=== PATIENT | female | born 1995 | race Caucasian/White ===

== ENCOUNTER 2016-12-05 08:26 | Inpatient (IN) | payer BC ==
[2016-12-05] MEDS ORDERED: PITOCin/NS 20 UNIT/1000ML DRIP 20 UNIT/1,000 ML BAG IV SCH (09:00)
[2016-12-05] MEDS ORDERED: STADOL IV PRN (09:30)
[2016-12-05] MEDS ORDERED: SUBLIMAZE IV PRN (09:30)
[2016-12-05] MEDS ORDERED: BRETHINE IVP PRN (10:00)
[2016-12-05] MEDS ORDERED: ZOFRAN IV PRN (10:00)
[2016-12-05] MEDS ORDERED: ePHEDrine SULFATE IV PRN (10:00)
[2016-12-05] MEDS ORDERED: NARCAN 0.4 MG/1 ML IV PRN (10:00)
[2016-12-05] MEDS ORDERED: BRETHINE SUB-Q PRN (10:00)
[2016-12-05] MEDS ORDERED: ALDOMET PO SCH (10:00)
[2016-12-05] MEDS ORDERED: XYLOCAINE 2% INFILTRATI ONE (10:00)
[2016-12-05] MEDS: CYTOTEC VAGINAL SCH ×2 (10:55→14:45)
[2016-12-05] MEDS: LACTATED RINGERS 1,000 ML IV SCH (11:05)
[2016-12-05 11:42] LABS: Hematocrit 37.7 % (30.3-42.9); Hemoglobin 12.2 gm/dl (10.1-14.3); Mean Corpuscular HGB Conc 32 % (30-34); Mean Corpuscular Volume 80 fl (79-97); Platelet Count 299 K/mm3 (140-440); Red Blood Count 4.73 M/mm3 (3.65-5.03); Red Cell Distribution Width 14.9 % (13.2-15.2); White Blood Count 13.4 K/mm3 (4.5-11.0)
[2016-12-05 11:46] LABS: Mean Corpuscular Hemoglobin 26 pg (28-32)
--- NOTE | 2016-12-05 12:17 | History and Physical Report ---
History of Present Illness Date of examination: 12/05/16 Date of admission: 12/05/16 08:26 Chief complaint: pt presents for inducion of labor secondary to chronic HTN at 39 weeks gestation Past History Past Medical History: no pertinent history Past Surgical History: no surgical history Family/Genetic History: diabetes Social history: no significant social history - Obstetrical History Expected Date of Delivery: 12/11/16 Actual Gestation: 39 Week(s) 1 Day(s) : 1 Medications and Allergies Allergies Allergy/AdvReac Type Severity Reaction Status Date / Time No Known Allergies Allergy Verified 12/05/16 09:30 Home Medications Medication Instructions Recorded Confirmed Last Taken Type Cyclobenzaprine [Flexeril] 10 mg PO TID PRN #15 tablet 02/14/14 Unknown Rx Ibuprofen [Motrin] 600 mg PO Q8H PRN #15 tablet 02/14/14 Unknown Rx Active Meds: Active Medications Butorphanol Tartrate (Stadol) 2 mg IV Q2H PRN PRN Reason: Pain , Severe (7-10) Ephedrine Sulfate (Ephedrine Sulfate) 10 mg IV Q2M PRN PRN Reason: Hypotension Stop: 12/05/16 16:00 Fentanyl (Sublimaze) 100 mcg IV Q2H PRN PRN Reason: Labor Pain Lactated Ringer's (Lactated Ringers) 1,000 mls @ 125 mls/hr IV DIRECT [facility] Last Admin: 12/05/16 11:05 Dose: 125 mls/hr Oxytocin/Sodium Chloride (Pitocin/Ns 20 Unit/1000ml Drip) 20 unit in 1,000 mls @ 125 mls/hr IV DIRECT [facility] Methyldopa (Aldomet) 250 mg PO Q12HR [facility] Mineral Oil (Mineral Oil) 30 ml PO QHS PRN PRN Reason: Constipation Misoprostol (Cytotec) 25 mcg VAGINAL Q4H [facility] Last Admin: 12/05/16 10:55 Dose: 25 mcg Naloxone HCl (Narcan 0.4 Mg/1 Ml) 0.1 mg IV Q2MIN PRN PRN Reason: Res Rate </= 8 or 02 SAT < 92% Ondansetron HCl (Zofran) 4 mg IV Q8H PRN PRN Reason: Nausea And Vomiting Review of Systems All systems: negative - Vital Signs Vital signs: Vital Signs Pulse BP 122 H 126/83 12/05/16 09:17 12/05/16 09:17 Temp Pulse Resp BP Pulse Ox 98.8 F 122 H 18 126/83 12/05/16 09:35 12/05/16 09:17 12/05/16 09:35 12/05/16 09:17 - Physical Exam Breasts: Positive: deferred Cardiovascular: Regular rate, Normal S1, Normal S2 Abdomen: Positive: normal appearance, soft, normal bowel sounds. Negative: distention, tenderness Vulva: both: normal Vagina: Positive: normal moisture. Negative: discharge Cervix: Negative: lesion, discharge Uterus: Positive: normal size, normal contour Adnexa: both: normal Anus/Rectum: Positive: normal perianal skin, heme negative. Negative: rectal mass, hemorrhoids Extremities: Deep Tendon Reflex Grade: Normal +2 - Obstetrical FHR: category 1 Uterine Contraction Monitor Mode: External Cervical Dilatation: 1.5 Cervical Effacement Percentage: 70 station: -1 Uterine Contraction Pattern: Absent Uterine Tone Measurement Phase: Resting Results Result Diagrams: 12/05/16 09:35 Abnormal lab results 12/05/16 Range/Units 09:35 WBC 13.4 H (4.5-11.0) K/mm3 MCH 26 L (28-32) pg All other labs normal. Assessment and Plan Iup atterm, chronic HTN Plan admit for induction of labor
--- NOTE | 2016-12-05 14:56 | Event Note ---
Date: 12/05/16 second cytotec just being placed. if no evidence of labor in 4 hours will allow patient to eat dinner and resume induction at 12 midnight
--- NOTE | 2016-12-05 18:19 | Event Note ---
Date: 12/05/16 pt examined and noted to be 70/2.5 -2 station. pt to have dinner and will start pitocin at 2am
[2016-12-05] MEDS ORDERED: MINERAL OIL PO PRN (22:00)
[2016-12-05] MEDS ORDERED: AMBIEN PO PRN (22:35)
[2016-12-05] MEDS: ALDOMET PO SCH (23:03)
[2016-12-06] MEDS: LACTATED RINGERS 1,000 ML IV SCH ×4 (02:50→19:59)
[2016-12-06] MEDS: PITOCin/NS 30 UNIT/500ML 30 UNIT/500 ML BAG IV SCH ×3 (02:51→20:38)
--- NOTE | 2016-12-06 08:57 | Event Note ---
Date: 12/06/16 pt examined and noted to be 70/2.5cm. arom- clear. iupc placed.. will Titrate pitocin to obtain adequate labor pattern.
[2016-12-06] MEDS: ALDOMET PO SCH (10:00)
[2016-12-06] MEDS ORDERED: ePHEDrine SULFATE ONE (12:17)
--- NOTE | 2016-12-06 12:49 | Anesthesia Consultation ---
Anesthesia Consult and Med Hx Date of service: 12/06/16 - Airway Anesthetic Teeth Evaluation: Good ROM Head & Neck: Adequate Mental/Hyoid Distance: Adequate Mallampati Class: Class II Intubation Access Assessment: Probably Good - Pulmonary Exam CTA: Yes - Cardiac Exam Cardiac Exam: No Murmur - Pre-Operative Health Status ASA Pre-Surgery Classification: ASA2 Proposed Anesthetic Plan: Epidural - Pulmonary Hx Asthma: No COPD: No Hx Pneumonia: No - Cardiovascular System Hx Hypertension: Yes (Gestational HTN) - Central Nervous System Hx Seizures: No Hx Psychiatric Problems: No - Endocrine Hx Renal Disease: No Hx End Stage Renal Disease: No Hx Hypothyroidism: No Hx Hyperthyroidism: No - Hematic Hx Anemia: No Hx Sickle Cell Disease: No - Other Systems Hx Alcohol Use: No
[2016-12-06] MEDS ORDERED: ePHEDrine SULFATE IV PRN (12:50)
[2016-12-06] MEDS ORDERED: NARCAN 2 MG/2 ML IV PRN (12:50)
[2016-12-06] MEDS: fentaNYL-BUPIV 2 MCG/ML-0.125% 200 MCG/100 ML BAG EPIDURAL SCH ×2 (13:06→20:38)
--- NOTE | 2016-12-06 19:27 | Progress Note ---
Assessment and Plan iup at term, chronic htn on pitocin Plan- patient has made slow progress. currently low grade temp. will attempt change in positions. If arrest of dilation or signs of chorio will proceed with c/s Subjective - Subjective Date of service: 12/06/16 Principal diagnosis: iup at 39 weeks Patient reports: contractions Objective - Vital Signs Vital Signs: Vital Signs - 12hr 12/06/16 12/06/16 12/06/16 07:26 07:30 07:31 Temperature Pulse Rate 92 H 93 H 95 H Blood Pressure O2 Sat by Pulse 94 94 95 Oximetry 12/06/16 12/06/16 12/06/16 07:34 07:36 07:37 Temperature Pulse Rate 100 H 106 H 103 H Blood Pressure 102/53 O2 Sat by Pulse 94 94 Oximetry 12/06/16 12/06/16 12/06/16 07:41 07:44 07:46 Temperature Pulse Rate 102 H 92 H 96 H Blood Pressure 96/51 O2 Sat by Pulse 95 94 94 Oximetry 12/06/16 12/06/16 12/06/16 07:50 07:51 07:55 Temperature Pulse Rate 102 H 104 H 101 H Blood Pressure O2 Sat by Pulse 94 94 94 Oximetry 12/06/16 12/06/16 12/06/16 07:56 08:05 08:10 Temperature Pulse Rate 103 H 99 H 97 H Blood Pressure O2 Sat by Pulse 94 96 95 Oximetry 12/06/16 12/06/16 12/06/16 08:15 08:17 08:20 Temperature Pulse Rate 97 H 97 H 101 H Blood Pressure 116/54 O2 Sat by Pulse 96 96 Oximetry 12/06/16 12/06/16 12/06/16 08:25 08:30 08:35 Temperature Pulse Rate 100 H 102 H 105 H Blood Pressure O2 Sat by Pulse 95 96 97 Oximetry 12/06/16 12/06/16 12/06/16 08:39 08:40 08:45 Temperature Pulse Rate 111 H 116 H 110 H Blood Pressure O2 Sat by Pulse 94 98 97 Oximetry 12/06/16 12/06/16 12/06/16 08:46 08:50 08:55 Temperature Pulse Rate 113 H 114 H 89 Blood Pressure 113/65 O2 Sat by Pulse 95 94 Oximetry 12/06/16 12/06/16 12/06/16 09:00 09:02 09:05 Temperature Pulse Rate 100 H 106 H 109 H Blood Pressure O2 Sat by Pulse 94 94 95 Oximetry 12/06/16 12/06/16 12/06/16 09:09 09:10 09:15 Temperature Pulse Rate 102 H 107 H 99 H Blood Pressure O2 Sat by Pulse 94 95 96 Oximetry 12/06/16 12/06/16 12/06/16 09:16 09:20 09:22 Temperature Pulse Rate 100 H 98 H 106 H Blood Pressure 119/58 O2 Sat by Pulse 96 94 Oximetry 12/06/16 12/06/16 12/06/16 09:25 09:30 09:33 Temperature Pulse Rate 102 H 104 H 111 H Blood Pressure O2 Sat by Pulse 95 95 94 Oximetry 12/06/16 12/06/16 12/06/16 09:35 09:40 09:45 Temperature Pulse Rate 102 H 106 H 103 H Blood Pressure O2 Sat by Pulse 96 96 95 Oximetry 12/06/16 12/06/16 12/06/16 09:46 09:50 09:55 Temperature Pulse Rate 107 H 100 H 105 H Blood Pressure 101/57 O2 Sat by Pulse 95 96 Oximetry 12/06/16 12/06/16 12/06/16 10:00 10:03 10:05 Temperature Pulse Rate 106 H 104 H 109 H Blood Pressure 107/57 O2 Sat by Pulse 97 93 94 Oximetry 12/06/16 12/06/16 12/06/16 10:11 10:12 10:16 Temperature Pulse Rate 97 H 101 H 94 H Blood Pressure 111/64 O2 Sat by Pulse 92 93 Oximetry 12/06/16 12/06/16 12/06/16 10:17 10:22 10:23 Temperature Pulse Rate 92 H 91 H 95 H Blood Pressure O2 Sat by Pulse 94 94 94 Oximetry 12/06/16 12/06/16 12/06/16 10:27 10:32 10:37 Temperature Pulse Rate 96 H 92 H 97 H Blood Pressure O2 Sat by Pulse 94 94 94 Oximetry 12/06/16 12/06/16 12/06/16 10:42 10:46 10:47 Temperature Pulse Rate 93 H 100 H 89 Blood Pressure 104/65 O2 Sat by Pulse 94 94 Oximetry 12/06/16 12/06/16 12/06/16 10:52 10:57 11:02 Temperature Pulse Rate 93 H 95 H 95 H Blood Pressure O2 Sat by Pulse 93 94 94 Oximetry 12/06/16 12/06/16 12/06/16 11:07 11:12 11:16 Temperature Pulse Rate 95 H 96 H 95 H Blood Pressure 114/70 O2 Sat by Pulse 94 93 Oximetry 12/06/16 12/06/16 12/06/16 11:17 11:22 11:24 Temperature Pulse Rate 97 H 100 H 101 H Blood Pressure O2 Sat by Pulse 94 94 94 Oximetry 12/06/16 12/06/16 12/06/16 11:26 11:29 11:32 Temperature Pulse Rate 102 H 111 H 102 H Blood Pressure O2 Sat by Pulse 94 94 95 Oximetry 12/06/16 12/06/16 12/06/16 11:36 11:37 11:42 Temperature Pulse Rate 109 H 110 H 99 H Blood Pressure O2 Sat by Pulse 94 95 93 Oximetry 12/06/16 12/06/16 12/06/16 11:47 11:48 11:52 Temperature Pulse Rate 106 H 103 H 104 H Blood Pressure 122/83 O2 Sat by Pulse 95 94 94 Oximetry 12/06/16 12/06/16 12/06/16 11:53 11:57 11:59 Temperature Pulse Rate 98 H 95 H 101 H Blood Pressure O2 Sat by Pulse 94 93 94 Oximetry 12/06/16 12/06/16 12/06/16 12:02 12:05 12:07 Temperature Pulse Rate 107 H 99 H 94 H Blood Pressure O2 Sat by Pulse 95 94 94 Oximetry 12/06/16 12/06/16 12/06/16 12:10 12:12 12:17 Temperature Pulse Rate 97 H 98 H 103 H Blood Pressure 108/60 O2 Sat by Pulse 94 96 94 Oximetry 12/06/16 12/06/16 12/06/16 12:21 12:24 12:27 Temperature Pulse Rate 103 H 101 H 98 H Blood Pressure O2 Sat by Pulse 94 90 96 Oximetry 12/06/16 12/06/16 12/06/16 12:30 12:32 12:37 Temperature Pulse Rate 98 H 110 H 119 H Blood Pressure O2 Sat by Pulse 94 95 97 Oximetry 12/06/16 12/06/16 12/06/16 12:42 12:43 12:45 Temperature Pulse Rate 100 H 110 H 115 H Blood Pressure 120/71 O2 Sat by Pulse 96 94 Oximetry 12/06/16 12/06/16 12/06/16 12:47 12:52 12:57 Temperature Pulse Rate 102 H 115 H 131 H Blood Pressure O2 Sat by Pulse 95 95 97 Oximetry 12/06/16 12/06/16 12/06/16 12:58 13:02 13:03 Temperature Pulse Rate 121 H 116 H 121 H Blood Pressure 129/66 111/59 O2 Sat by Pulse 97 Oximetry 12/06/16 12/06/16 12/06/16 13:06 13:07 13:11 Temperature Pulse Rate 116 H 117 H 116 H Blood Pressure 111/56 120/66 O2 Sat by Pulse 97 Oximetry 12/06/16 12/06/16 12/06/16 13:12 13:17 13:18 Temperature Pulse Rate 123 H 107 H 114 H Blood Pressure 98/55 O2 Sat by Pulse 99 98 Oximetry 12/06/16 12/06/16 12/06/16 13:22 13:26 13:27 Temperature Pulse Rate 110 H 101 H 104 H Blood Pressure 100/60 101/60 O2 Sat by Pulse 97 98 Oximetry 12/06/16 12/06/16 12/06/16 13:31 13:32 13:37 Temperature Pulse Rate 99 H 103 H 112 H Blood Pressure 103/60 111/69 O2 Sat by Pulse 97 99 Oximetry 12/06/16 12/06/16 12/06/16 13:41 13:42 13:47 Temperature Pulse Rate 113 H 103 H 101 H Blood Pressure 102/63 102/56 O2 Sat by Pulse 99 98 Oximetry 12/06/16 12/06/16 12/06/16 13:52 13:57 14:02 Temperature Pulse Rate 109 H 110 H 97 H Blood Pressure 110/61 102/64 O2 Sat by Pulse 98 97 97 Oximetry 12/06/16 12/06/16 12/06/16 14:03 14:07 14:08 Temperature Pulse Rate 107 H 99 H 100 H Blood Pressure 113/59 103/59 O2 Sat by Pulse 98 Oximetry 12/06/16 12/06/16 12/06/16 14:12 14:16 14:17 Temperature Pulse Rate 103 H 95 H 101 H Blood Pressure 105/57 92/55 O2 Sat by Pulse 98 98 Oximetry 12/06/16 12/06/16 12/06/16 14:21 14:22 14:26 Temperature Pulse Rate 101 H 101 H 99 H Blood Pressure 93/54 98/59 O2 Sat by Pulse 96 Oximetry 12/06/16 12/06/16 12/06/16 14:27 14:31 14:32 Temperature Pulse Rate 107 H 97 H 100 H Blood Pressure 98/59 O2 Sat by Pulse 98 98 Oximetry 12/06/16 12/06/16 12/06/16 14:37 14:38 14:41 Temperature Pulse Rate 87 97 H 95 H Blood Pressure 98/56 94/56 O2 Sat by Pulse 98 Oximetry 12/06/16 12/06/16 12/06/16 14:42 14:47 14:48 Temperature Pulse Rate 94 H 89 97 H Blood Pressure 94/53 O2 Sat by Pulse 97 97 Oximetry 12/06/16 12/06/16 12/06/16 14:51 14:52 14:56 Temperature Pulse Rate 90 92 H 96 H Blood Pressure 90/53 93/53 O2 Sat by Pulse 98 Oximetry 12/06/16 12/06/16 12/06/16 14:57 15:01 15:02 Temperature Pulse Rate 94 H 88 85 Blood Pressure 97/58 O2 Sat by Pulse 97 99 Oximetry 12/06/16 12/06/16 12/06/16 15:07 15:08 15:12 Temperature Pulse Rate 112 H 111 H 115 H Blood Pressure 114/58 97/55 O2 Sat by Pulse 99 99 Oximetry 12/06/16 12/06/16 12/06/16 15:17 15:22 15:27 Temperature Pulse Rate 115 H 113 H 113 H Blood Pressure 108/58 110/61 103/64 O2 Sat by Pulse 98 98 97 Oximetry 12/06/16 12/06/16 12/06/16 15:32 15:37 15:42 Temperature Pulse Rate 112 H 114 H 117 H Blood Pressure 109/63 108/63 108/66 O2 Sat by Pulse 98 98 97 Oximetry 12/06/16 12/06/16 12/06/16 15:47 15:52 15:56 Temperature Pulse Rate 112 H 115 H 113 H Blood Pressure 100/63 102/56 96/56 O2 Sat by Pulse 96 96 Oximetry 12/06/16 12/06/16 12/06/16 15:57 16:01 16:02 Temperature Pulse Rate 115 H 107 H 111 H Blood Pressure 98/55 O2 Sat by Pulse 96 96 Oximetry 12/06/16 12/06/16 12/06/16 16:07 16:11 16:12 Temperature Pulse Rate 107 H 108 H 107 H Blood Pressure 103/55 102/58 O2 Sat by Pulse 96 96 Oximetry 12/06/16 12/06/16 12/06/16 16:17 16:22 16:23 Temperature Pulse Rate 111 H 102 H 106 H Blood Pressure 93/58 104/59 O2 Sat by Pulse 96 96 Oximetry 12/06/16 12/06/16 12/06/16 16:27 16:28 16:32 Temperature Pulse Rate 105 H 110 H 102 H Blood Pressure 100/54 O2 Sat by Pulse 96 96 Oximetry 12/06/16 12/06/16 12/06/16 16:33 16:37 16:42 Temperature Pulse Rate 111 H 109 H 108 H Blood Pressure 101/59 102/54 104/59 O2 Sat by Pulse 96 97 Oximetry 12/06/16 12/06/16 12/06/16 16:46 16:47 16:52 Temperature Pulse Rate 111 H 111 H 109 H Blood Pressure 104/59 104/60 O2 Sat by Pulse 97 96 Oximetry 12/06/16 12/06/16 12/06/16 16:56 16:57 17:01 Temperature Pulse Rate 108 H 112 H 116 H Blood Pressure 105/59 107/57 O2 Sat by Pulse 96 Oximetry 12/06/16 12/06/16 12/06/16 17:02 17:06 17:07 Temperature Pulse Rate 112 H 113 H 114 H Blood Pressure 103/58 O2 Sat by Pulse 97 96 Oximetry 12/06/16 12/06/16 12/06/16 17:12 17:13 17:17 Temperature Pulse Rate 115 H 118 H 110 H Blood Pressure 105/60 104/62 O2 Sat by Pulse 95 96 Oximetry 12/06/16 12/06/16 12/06/16 17:22 17:27 17:32 Temperature Pulse Rate 113 H 113 H 118 H Blood Pressure 99/57 102/55 112/65 O2 Sat by Pulse 95 96 97 Oximetry 12/06/16 12/06/16 12/06/16 17:36 17:37 17:41 Temperature Pulse Rate 129 H 130 H 117 H Blood Pressure 113/65 108/58 O2 Sat by Pulse 97 Oximetry 12/06/16 12/06/16 12/06/16 17:42 17:46 17:47 Temperature Pulse Rate 119 H 120 H 114 H Blood Pressure 107/60 O2 Sat by Pulse 97 97 Oximetry 12/06/16 12/06/16 12/06/16 17:51 17:52 17:56 Temperature Pulse Rate 117 H 120 H 122 H Blood Pressure 109/61 113/67 O2 Sat by Pulse 97 Oximetry 12/06/16 12/06/16 12/06/16 17:57 18:01 18:02 Temperature Pulse Rate 122 H 116 H 118 H Blood Pressure 111/69 O2 Sat by Pulse 97 97 Oximetry 12/06/16 12/06/16 12/06/16 18:07 18:11 18:12 Temperature Pulse Rate 114 H 120 H 123 H Blood Pressure 109/69 108/69 O2 Sat by Pulse 96 96 Oximetry 12/06/16 12/06/16 12/06/16 18:16 18:17 18:21 Temperature Pulse Rate 115 H 116 H 114 H Blood Pressure 108/69 105/68 O2 Sat by Pulse 96 Oximetry 12/06/16 12/06/16 12/06/16 18:22 18:27 18:32 Temperature Pulse Rate 114 H 117 H 118 H Blood Pressure 109/65 103/64 O2 Sat by Pulse 97 97 96 Oximetry 12/06/16 12/06/16 12/06/16 18:37 18:42 18:47 Temperature Pulse Rate 122 H 118 H 127 H Blood Pressure 113/72 107/63 O2 Sat by Pulse 98 97 98 Oximetry 12/06/16 12/06/16 12/06/16 18:52 18:53 18:57 Temperature Pulse Rate 118 H 125 H 123 H Blood Pressure 130/69 O2 Sat by Pulse 97 97 Oximetry 12/06/16 12/06/16 12/06/16 18:58 19:02 19:04 Temperature 100.1 F H Pulse Rate 117 H 127 H Blood Pressure 119/71 123/82 O2 Sat by Pulse 99 Oximetry 12/06/16 12/06/16 12/06/16 19:06 19:07 19:12 Temperature Pulse Rate 122 H 127 H 124 H Blood Pressure 129/86 O2 Sat by Pulse 99 98 Oximetry 12/06/16 12/06/16 19:17 19:22 Temperature Pulse Rate 122 H 127 H Blood Pressure O2 Sat by Pulse 98 98 Oximetry - Exam Breasts: deferred Cardiovascular: Regular rate, Normal S1, Normal S2 Lungs: Clear to auscultation Abdomen: Present: normal appearance, soft. Absent: distention, tenderness Vulva: both: normal Uterus: Present: normal FHR: category 1 Uterine Contraction Monitor Mode: Internal Cervical Dilatation: 5.5 Cervical Effacement Percentage: 100 station: -1 Uterine Contraction Pattern: Regular Uterine Contraction Intensity: Moderate Extremities: normal - Labs Labs: Abnormal Labs 12/05/16 09:35 WBC 13.4 H MCH 26 L
[2016-12-06] MEDS ORDERED: TYLENOL PO ONE (20:05)
[2016-12-06] MEDS ORDERED: REGLAN ONE (21:04)
[2016-12-06] MEDS ORDERED: BICITRA ONE (21:04)
[2016-12-06] MEDS ORDERED: ANCEF/STERILE WATER 2 GM/20 ML 2 GM/20 ML SYRINGE IV ONE (21:05)
[2016-12-06] MEDS ORDERED: PEPCID IV ONE ×2 (21:05→21:07)
[2016-12-06] MEDS ORDERED: BICITRA PO ONE (21:07)
[2016-12-06] MEDS ORDERED: EMLA TP PRN (21:07)
[2016-12-06] MEDS ORDERED: REGLAN IV ONE (21:07)
--- NOTE | 2016-12-06 21:19 | Anesthesia Day of Surgery ---
Anesthesia Day of Surgery - Day of Surgery Patient Examined: Yes Patient H&P Reviewed: Yes Patient is NPO: Yes
[2016-12-06] MEDS ORDERED: XYLOCAINE MPF 2% ONE (21:29)
[2016-12-06] MEDS ORDERED: MORPHINE ONE ×2 (21:29→21:30)
[2016-12-06] MEDS ORDERED: WATER FOR IRRIG STERILE IR ONE (21:42)
[2016-12-06] MEDS ORDERED: NACL 0.9% IR ONE (21:42)
[2016-12-06] MEDS ORDERED: ZOFRAN ONE (21:43)
[2016-12-06] MEDS ORDERED: METHERGINE IM ONE ×2 (21:55→22:02)
[2016-12-06] MEDS ORDERED: ANCEF/STERILE WATER 2 GM/20 ML IV NR (22:00)
[2016-12-06] MEDS ORDERED: PITOCin/NS 20 UNIT/1000ML DRIP 20 UNITS/1,000 ML BAG IV NR (22:00)
[2016-12-06] MEDS ORDERED: LACTATED RINGERS 1,000 ML IV NR (22:00)
[2016-12-06] MEDS ORDERED: PITOCin/NS 30 UNIT/500ML 30 UNIT/500 ML BAG IV SCH (22:00)
[2016-12-06] MEDS ORDERED: TORADOL ONE (22:10)
[2016-12-06] MEDS ORDERED: TYLENOL PO PRN (22:30)
--- NOTE | 2016-12-06 22:33 | Procedure Note ---
OB Delivery Note - Delivery Date of Delivery: 12/06/16 Surgeon: YOLA ALVARENGA Estimated blood loss: other (700ml) - Section Preop diagnosis: nonreassuring FHR tracing, other (chorioamnionitis) Postop diagnosis: same section procedure: primary low transverse Disposition: PACU Complications: none - Infant A at 1 minute: 8 at 5 minutes: 9 Gender: Male (wt 8-6 and mother tolerated the procedure well.)
--- NOTE | 2016-12-06 22:34 | Operative Report ---
Operative Report Operative Report: Preoperative diagnoses- Intrauterine at 39 WEEKS, NON REASSURING TRACING, CHORIOamnionitis Postoperative diagnoses- SAME Procedure- Repeat low segment transverse section Surgeon- Dr. Mirlande Rizo Anesthesia- Spinal/epidural Findings- live male infant wt 8-6, apgars 8 & 9, normal tubes and ovaries. Estimated blood loss- 700ml Complications- none Instrument count- Correct Pathology specimens- Placenta to pathology Patient was taken to the OR. Spinal/epidural anesthesia was instituted. Patient was then placed in the dorsolithotomy position and Alexis catheter was placed. Patient was then returned to the supine position and prepped and draped in usual sterile fashion. Level of anesthesia was checked and found to be adequate. Pfannenstiel skin incision was made. The incision was extended through the subcutaneous tissues to the fascia. Which was incised transversely using Mayos and pickups with teeth. The fascia was from the underlying muscle using Kochers and Bovie cautery. The rectus muscle was then in the midline. The peritoneum was visualized, grasped with hemostats and opened using the Metzenbaum scissors. Upon entering the peritoneal cavity an abran retractor was placed appropriately. A curvilinear incision was made with Metzenbaum scissors and a smooth pickup. A bladder flap was developed, a curvilinear incision was made in the lower uterine segment using a scalpel. The uterine cavity was entered bluntly with the surgeon's finger and the incision was enlarged. The Head of the infant was delivered . The mouth and nose were suctioned and the remainder of the body was delivered . The cord was doubly clamped and cut . Infant was given to the waiting team. The cord blood was obtained. The placenta was then delivered manually. The uterus is cleaned with a moist wet lap tape. The first layer of the uterus is closed with 0 Vicryl running interlocking stitch. The second layer of the uterus was closed with a 0 Vicryl horizontal imbricating stitch. The pelvic gutters were cleaned . Next the adnexa were examined and found to be normal. Next the fascia was closed with 0 Vicryl running suture. Next the subcutaneous tissue was reapproximated with 3-0 Vicryl running suture. The skin was reapproximated with a 4-0 Vicryl subcuticular stitch. Mastisol and Steri-Strips were placed . A pressure dressing was applied. The patient was transferred to recovery room in stable condition.
--- NOTE | 2016-12-06 22:39 | Post Anesthesia Evaluation ---
- Post Anesthesia Evaluation Patient Participated: Yes Airway Patent: Yes Stable Respiratory Function: Yes Nausea/Vomiting: No Temp > 96.8F: Yes Pain Manageable: Yes Adequeate Hydration: Yes Anesthesia Complications: No Block Receding Appropriately: Yes Patient on Ventilator: No
[2016-12-07] MEDS ORDERED: TUCKS PAD TP PRN (00:10)
[2016-12-07] MEDS ORDERED: PITOCin/NS 20 UNIT/1000ML DRIP 20 UNIT/1,000 ML BAG IV SCH (00:10)
[2016-12-07] MEDS ORDERED: MORPHINE IV PRN (00:10)
[2016-12-07] MEDS ORDERED: LANSINOH TP PRN (00:10)
[2016-12-07] MEDS ORDERED: NARCAN 0.4 MG/1 ML IV PRN (00:10)
[2016-12-07] MEDS ORDERED: MYLICON PO PRN (00:10)
[2016-12-07] MEDS ORDERED: SODIUM CHLORIDE FLUSH SYRINGE 10 ML IV NR (00:10)
[2016-12-07] MEDS ORDERED: MILK OF MAGNESIA PO PRN (00:10)
[2016-12-07] MEDS ORDERED: TORADOL IV PRN (00:10)
[2016-12-07] MEDS: CLEOCIN 600 MG/50 mL 600 MG/50 ML BAG IV SCH ×4 (00:42→23:55)
[2016-12-07] MEDS: D5LR 1,000 ML IV SCH ×2 (02:03→10:52)
[2016-12-07] MEDS: ANCEF/NS 1 GM/50 ML 1 GM/50 ML BAG IV SCH ×2 (02:07→10:50)
[2016-12-07] MEDS ORDERED: CLEOCIN 600 MG/50 mL 600 MG/50 ML BAG IV SCH (06:00)
[2016-12-07 06:06] LABS: Hematocrit 31.3 % (30.3-42.9); Hemoglobin 10.2 gm/dl (10.1-14.3); Mean Corpuscular HGB Conc 33 % (30-34); Mean Corpuscular Volume 79 fl (79-97); Platelet Count 242 K/mm3 (140-440); Red Blood Count 3.95 M/mm3 (3.65-5.03); Red Cell Distribution Width 14.9 % (13.2-15.2)
[2016-12-07 06:08] LABS: Mean Corpuscular Hemoglobin 26 pg (28-32); White Blood Count 27.1 K/mm3 (4.5-11.0)
[2016-12-07 07:25] LABS: Blastocytes % (Manual) 0 %; Eosinophils % (Manual) 0 % (0.0-4.3)
[2016-12-07 07:26] LABS: Anisocytosis 1+; Diff Status Complete; Hypochromasia 1+; Large Platelets 1+; Platelet Estimate Cons
--- NOTE | 2016-12-07 07:44 | Progress Note ---
Assessment and Plan pod 1 s/p primary c/s and chorioamnionitis. continue antibiotics. encourage ambulation and advance diet as tolerated Subjective - Subjective Date of service: 12/07/16 Principal diagnosis: iup at 39 weeks, pod 1 s/p primary c/s Interval history: Pt febrile in or temp of 102, and 103 in recovery pt started on cleocin in addition to ancef Patient reports: appetite normal, pain well controlled [place]: doing well Objective - Vital Signs Latest vital signs: Vital Signs Temp Pulse Pulse Resp BP BP Pulse Ox 12/07/16 04:20 99.4 F 115 H 20 111/54 12/06/16 23:55 100.0 F H 117 H 20 110/57 12/06/16 23:30 100.8 F H 118 H 25 H 123/60 94 12/06/16 23:15 116 H 19 119/70 94 12/06/16 23:00 120 H 21 116/68 93 12/06/16 22:45 116 H 23 109/63 94 12/06/16 22:40 117 H 23 108/62 94 12/06/16 22:35 117 H 26 H 110/65 95 12/06/16 22:30 103 F H 116 H 26 H 105/66 96 12/06/16 21:15 20 12/06/16 21:12 142 H 99 12/06/16 21:10 139 H 115/68 12/06/16 21:07 135 H 98 12/06/16 21:02 139 H 99 12/06/16 20:57 119 H 96 12/06/16 20:52 118 H 97 12/06/16 20:47 118 H 98 12/06/16 20:42 118 H 97 12/06/16 20:40 116 H 102/63 12/06/16 20:37 125 H 98 12/06/16 20:32 124 H 99 12/06/16 20:27 116 H 97 12/06/16 20:22 120 H 98 12/06/16 20:17 124 H 98 12/06/16 20:12 116 H 98 12/06/16 20:10 114 H 87/51 12/06/16 20:07 117 H 97 12/06/16 20:02 117 H 97 12/06/16 19:57 115 H 98 12/06/16 19:52 111 H 98 12/06/16 19:47 111 H 98 12/06/16 19:43 114 H 92/54 12/06/16 19:42 113 H 97 12/06/16 19:41 116 H 84/45 12/06/16 19:37 121 H 98 12/06/16 19:32 125 H 97 12/06/16 19:27 132 H 99 12/06/16 19:22 127 H 98 12/06/16 19:17 122 H 98 12/06/16 19:12 124 H 98 12/06/16 19:07 127 H 99 12/06/16 19:06 122 H 129/86 12/06/16 19:04 100.1 F H 12/06/16 19:02 127 H 123/82 99 12/06/16 18:58 117 H 119/71 12/06/16 18:57 123 H 97 12/06/16 18:53 125 H 130/69 12/06/16 18:52 118 H 97 12/06/16 18:47 127 H 107/63 98 12/06/16 18:42 118 H 97 12/06/16 18:37 122 H 113/72 98 12/06/16 18:32 118 H 103/64 96 12/06/16 18:27 117 H 109/65 97 12/06/16 18:22 114 H 97 12/06/16 18:21 114 H 105/68 12/06/16 18:17 116 H 96 12/06/16 18:16 115 H 108/69 12/06/16 18:12 123 H 96 12/06/16 18:11 120 H 108/69 12/06/16 18:07 114 H 109/69 96 12/06/16 18:02 118 H 97 12/06/16 18:01 116 H 111/69 12/06/16 17:57 122 H 97 12/06/16 17:56 122 H 113/67 12/06/16 17:52 120 H 97 12/06/16 17:51 117 H 109/61 12/06/16 17:47 114 H 97 12/06/16 17:46 120 H 107/60 12/06/16 17:42 119 H 97 12/06/16 17:41 117 H 108/58 12/06/16 17:37 130 H 97 12/06/16 17:36 129 H 113/65 12/06/16 17:32 118 H 112/65 97 12/06/16 17:27 113 H 102/55 96 12/06/16 17:22 113 H 99/57 95 12/06/16 17:17 110 H 104/62 96 12/06/16 17:13 118 H 105/60 12/06/16 17:12 115 H 95 12/06/16 17:07 114 H 96 12/06/16 17:06 113 H 103/58 12/06/16 17:02 112 H 97 12/06/16 17:01 116 H 107/57 12/06/16 16:57 112 H 96 12/06/16 16:56 108 H 105/59 12/06/16 16:52 109 H 104/60 96 12/06/16 16:47 111 H 97 12/06/16 16:46 111 H 104/59 12/06/16 16:42 108 H 104/59 97 12/06/16 16:37 109 H 102/54 96 12/06/16 16:33 111 H 101/59 12/06/16 16:32 102 H 96 12/06/16 16:28 110 H 100/54 12/06/16 16:27 105 H 96 12/06/16 16:23 106 H 104/59 12/06/16 16:22 102 H 96 12/06/16 16:17 111 H 93/58 96 12/06/16 16:12 107 H 96 12/06/16 16:11 108 H 102/58 12/06/16 16:07 107 H 103/55 96 12/06/16 16:02 111 H 96 12/06/16 16:01 107 H 98/55 12/06/16 15:57 115 H 96 12/06/16 15:56 113 H 96/56 12/06/16 15:52 115 H 102/56 96 12/06/16 15:47 112 H 100/63 96 12/06/16 15:42 117 H 108/66 97 12/06/16 15:37 114 H 108/63 98 12/06/16 15:32 112 H 109/63 98 12/06/16 15:27 113 H 103/64 97 12/06/16 15:22 113 H 110/61 98 12/06/16 15:17 115 H 108/58 98 12/06/16 15:12 115 H 97/55 99 12/06/16 15:08 111 H 114/58 12/06/16 15:07 112 H 99 12/06/16 15:02 85 99 12/06/16 15:01 88 97/58 12/06/16 14:57 94 H 97 12/06/16 14:56 96 H 93/53 12/06/16 14:52 92 H 98 12/06/16 14:51 90 90/53 12/06/16 14:48 97 H 94/53 12/06/16 14:47 89 97 12/06/16 14:42 94 H 97 12/06/16 14:41 95 H 94/56 12/06/16 14:38 97 H 98/56 12/06/16 14:37 87 98 12/06/16 14:32 100 H 98 12/06/16 14:31 97 H 98/59 12/06/16 14:27 107 H 98 12/06/16 14:26 99 H 98/59 12/06/16 14:22 101 H 96 12/06/16 14:21 101 H 93/54 12/06/16 14:17 101 H 98 12/06/16 14:16 95 H 92/55 12/06/16 14:12 103 H 105/57 98 12/06/16 14:08 100 H 103/59 12/06/16 14:07 99 H 98 12/06/16 14:03 107 H 113/59 12/06/16 14:02 97 H 97 12/06/16 13:57 110 H 102/64 97 12/06/16 13:52 109 H 110/61 98 12/06/16 13:47 101 H 102/56 98 12/06/16 13:42 103 H 99 12/06/16 13:41 113 H 102/63 12/06/16 13:37 112 H 111/69 99 12/06/16 13:32 103 H 97 12/06/16 13:31 99 H 103/60 12/06/16 13:27 104 H 98 12/06/16 13:26 101 H 101/60 12/06/16 13:22 110 H 100/60 97 12/06/16 13:18 114 H 98/55 0209/17 13:17 107 H 98 12/06/16 13:12 123 H 99 12/06/16 13:11 116 H 120/66 12/06/16 13:07 117 H 97 12/06/16 13:06 116 H 111/56 12/06/16 13:03 121 H 111/59 12/06/16 13:02 116 H 97 12/06/16 12:58 121 H 129/66 12/06/16 12:57 131 H 97 12/06/16 12:52 115 H 95 12/06/16 12:47 102 H 95 12/06/16 12:45 115 H 94 12/06/16 12:43 110 H 120/71 12/06/16 12:42 100 H 96 12/06/16 12:37 119 H 97 12/06/16 12:32 110 H 95 12/06/16 12:30 98 H 94 12/06/16 12:27 98 H 96 12/06/16 12:24 101 H 90 12/06/16 12:21 103 H 94 12/06/16 12:17 103 H 108/60 94 12/06/16 12:12 98 H 96 12/06/16 12:10 97 H 94 12/06/16 12:07 94 H 94 12/06/16 12:05 99 H 94 12/06/16 12:02 107 H 95 12/06/16 11:59 101 H 94 12/06/16 11:57 95 H 93 12/06/16 11:53 98 H 94 12/06/16 11:52 104 H 94 12/06/16 11:48 103 H 94 12/06/16 11:47 106 H 122/83 95 12/06/16 11:42 99 H 93 12/06/16 11:37 110 H 95 12/06/16 11:36 109 H 94 12/06/16 11:32 102 H 95 12/06/16 11:29 111 H 94 12/06/16 11:26 102 H 94 12/06/16 11:24 101 H 94 12/06/16 11:22 100 H 94 12/06/16 11:17 97 H 94 12/06/16 11:16 95 H 114/70 12/06/16 11:12 96 H 93 12/06/16 11:07 95 H 94 12/06/16 11:02 95 H 94 12/06/16 10:57 95 H 94 12/06/16 10:52 93 H 93 12/06/16 10:47 89 94 12/06/16 10:46 100 H 104/65 12/06/16 10:42 93 H 94 12/06/16 10:37 97 H 94 12/06/16 10:32 92 H 94 12/06/16 10:27 96 H 94 12/06/16 10:23 95 H 94 12/06/16 10:22 91 H 94 12/06/16 10:17 92 H 94 12/06/16 10:16 94 H 111/64 12/06/16 10:12 101 H 93 12/06/16 10:11 97 H 92 12/06/16 10:05 109 H 94 12/06/16 10:03 104 H 93 12/06/16 10:00 106 H 107/57 97 12/06/16 09:55 105 H 96 12/06/16 09:50 100 H 95 12/06/16 09:46 107 H 101/57 12/06/16 09:45 103 H 95 12/06/16 09:40 106 H 96 12/06/16 09:35 102 H 96 12/06/16 09:33 111 H 94 12/06/16 09:30 104 H 95 12/06/16 09:25 102 H 95 12/06/16 09:22 106 H 94 12/06/16 09:20 98 H 96 12/06/16 09:16 100 H 119/58 12/06/16 09:15 99 H 96 12/06/16 09:10 107 H 95 12/06/16 09:09 102 H 94 12/06/16 09:05 109 H 95 12/06/16 09:02 106 H 94 12/06/16 09:00 100 H 94 12/06/16 08:55 89 94 12/06/16 08:50 114 H 95 12/06/16 08:46 113 H 113/65 12/06/16 08:45 110 H 97 12/06/16 08:40 116 H 98 12/06/16 08:39 111 H 94 12/06/16 08:35 105 H 97 12/06/16 08:30 102 H 96 12/06/16 08:25 100 H 95 12/06/16 08:20 101 H 96 12/06/16 08:17 97 H 116/54 12/06/16 08:15 97 H 96 12/06/16 08:10 97 H 95 12/06/16 08:05 99 H 96 12/06/16 07:56 103 H 94 12/06/16 07:55 101 H 94 12/06/16 07:51 104 H 94 12/06/16 07:50 102 H 94 12/06/16 07:46 96 H 96/51 94 12/06/16 07:44 92 H 94 Intake and Output 12/06/16 12/07/16 12/07/16 22:59 06:59 14:59 Intake Total 1500 1495 Output Total 450 230 Balance 1050 1265 Intake: IV 1500 1375 ANCEF/NS 1 GM/50 ML 1 gm 50 In 50 ml @ 100 mls/hr IV Q8H [facility] Rx#:[id number] D5lr 1,000 ml @ 125 mls/ 450 hr IV DIRECT DANA Rx#: [id number] Lactated Ringers 1,000 ml 1000 @ 125 mls/hr IV DIRECT DANA Rx#:[id number] PITOCin/NS 20 UNIT/1000ML 250 DRIP 20 unit In 1,000 ml @ 250 mls/hr IV TITR DA[facility] Rx#:[id number] PITOCin/NS 20 UNIT/1000ML 125 DRIP 20 units In 1,000 ml @ 125 mls/hr IV TITR NR Rx#:[id number] PITOCin/NS 30 UNIT/500ML 500 500 30 unit In 500 ml @ 4 MILLIUNITS/MIN 4 mls/hr IV TITR [facility] Rx#:[id number] Oral 120 Output: Urine 450 230 Indwelling Catheter 400 200 Other: Total, Intake Amount 120 Total, Output Amount 400 200 Weight 106.594 kg - Exam Breasts: Present: deferred Cardiovascular: Present: Regular rate, Normal S1, Normal S2 Abdomen: Present: normal appearance, soft Vulva: both: normal Uterus: Present: normal, firm Extremities: Present: normal Incision: Present: normal, dry, dressed - Labs Labs: Abnormal lab results 12/07/16 Range/Units 05:03 WBC 27.1 H (4.5-11.0) K/mm3 MCH 26 L (28-32) pg Seg Neuts % (Manual) 90.0 H (40.0-70.0) % Lymphocytes % (Manual) 6.0 L (13.4-35.0) % Seg Neutrophils # Man 24.4 H (1.8-7.7) K/mm3 Basophils # (Manual) 0.3 H (0.0-0.1) K/mm3
[2016-12-07] MEDS: FEOSOL PO SCH ×2 (09:06→23:55)
--- NOTE | 2016-12-07 09:41 | Progress Note ---
Subjective Date of service: 12/07/16 Principal diagnosis: iup at 39 weeks, pod 1 s/p primary c/s Interval history: Post op day 1; patient satisfied with anesthesia for ; not ambulating until 11:30 AM; no problems reported. Objective - Constitutional Vitals: Vital Signs - 12hr 12/06/16 12/06/16 12/06/16 22:30 22:35 22:40 Temperature 103 F H Pulse Rate 116 H 117 H 117 H Pulse Rate [ From Monitor] Respiratory 26 H 26 H 23 Rate Blood Pressure 105/66 110/65 108/62 Blood Pressure [Right Arm] O2 Sat by Pulse 96 95 94 Oximetry 12/06/16 12/06/16 12/06/16 22:45 23:00 23:15 Temperature Pulse Rate 116 H 120 H 116 H Pulse Rate [ From Monitor] Respiratory 23 21 19 Rate Blood Pressure 109/63 116/68 119/70 Blood Pressure [Right Arm] O2 Sat by Pulse 94 93 94 Oximetry 12/06/16 12/06/16 12/07/16 23:30 23:55 04:20 Temperature 100.8 F H 100.0 F H 99.4 F Pulse Rate 118 H Pulse Rate [ 117 H 115 H From Monitor] Respiratory 25 H 20 20 Rate Blood Pressure 123/60 Blood Pressure 110/57 111/54 [Right Arm] O2 Sat by Pulse 94 Oximetry 12/07/16 08:55 Temperature 99.1 F Pulse Rate Pulse Rate [ 114 H From Monitor] Respiratory 20 Rate Blood Pressure Blood Pressure 87/54 [Right Arm] O2 Sat by Pulse Oximetry - Labs CBC & Chem 7: 12/07/16 05:03 Labs: Abnormal lab results 12/07/16 Range/Units 05:03 WBC 27.1 H (4.5-11.0) K/mm3 MCH 26 L (28-32) pg Seg Neuts % (Manual) 90.0 H (40.0-70.0) % Lymphocytes % (Manual) 6.0 L (13.4-35.0) % Seg Neutrophils # Man 24.4 H (1.8-7.7) K/mm3 Basophils # (Manual) 0.3 H (0.0-0.1) K/mm3
[2016-12-07 10:38] LABS: Hematocrit 30.5 % (30.3-42.9); Hemoglobin 9.9 gm/dl (10.1-14.3)
[2016-12-07] MEDS: PERCOCET 5/325 PO PRN (18:12)
[2016-12-07] MEDS: MOTRIN PO PRN (23:54)
[2016-12-08] MEDS ORDERED: BOOSTRIX IM ONE (06:07)
[2016-12-08] MEDS: CLEOCIN 600 MG/50 mL 600 MG/50 ML BAG IV SCH ×3 (08:26→23:30)
[2016-12-08] MEDS: PERCOCET 5/325 PO PRN (12:25)
[2016-12-08] MEDS: MOTRIN PO PRN (12:26)
--- NOTE | 2016-12-08 12:45 | Progress Note ---
Assessment and Plan O: VSS MAITE H/H: 9.9/30.3 A: Stable POD #2 Anemia P: on abx Plan D/C tomorrow [facility] BID Subjective - Subjective Date of service: 12/08/16 Principal diagnosis: iup at 39 weeks, pod 1 s/p primary c/s Patient reports: appetite normal, voiding normally, pain well controlled, flatus , ambulating normally [place]: doing well Objective - Vital Signs Latest vital signs: Vital Signs Temp Pulse Resp BP 12/08/16 09:15 99.1 F 101 H 20 86/58 12/08/16 00:05 98.8 F 100 H 20 110/59 12/07/16 23:54 18 12/07/16 20:15 99.0 F 103 H 20 104/57 Intake and Output 12/07/16 12/08/16 12/08/16 22:59 06:59 14:59 Intake Total 170 360 170 Balance 170 360 170 Intake: IV 50 50 CLEOCIN 600 MG/50 mL 600 50 50 mg In 50 ml @ 100 mls/hr IV Q8H [facility] Rx#:[id number] Oral 120 360 120 Other: Total, Intake Amount 120 120 120 # Voids Indwelling Catheter 1 1 1 - Exam Breasts: Present: deferred Abdomen: Present: normal appearance, soft, normal bowel sounds. Absent: distention, tenderness Vulva: both: normal Uterus: Present: normal, fundal height below umbilicus. Absent: bogginess, tenderness Extremities: Present: normal Incision: Present: normal, dry, intact
--- NOTE | 2016-12-08 12:48 | Discharge Summary ---
Providers - Providers Date of Admission: 12/05/16 08:26 Date of discharge: 12/09/16 Attending physician: YOLA ALVARENGA Primary care physician: YOLA ALVARENGA Hospitalization Reason for admission: section, IUP at term Procedure: section Episiotomy: none Laceration: none Incision: normal, dry, intact Other procedures: none complications: none Discharge diagnosis: IUP at term delivered baby: male Condition at discharge: Good Disposition: DISCHARGED TO HOME OR SELFCARE Plan - Discharge Medications Prescriptions: Ferrous Sulfate [Feosol 325 MG tab] 325 mg PO BID #30 tablet Ibuprofen [Motrin 800 MG tab] 800 mg PO Q8HR PRN #30 tablet PRN Reason: Pain oxyCODONE /ACETAMINOPHEN [Percocet 5/325] 1 tab PO Q6HR PRN #30 tablet PRN Reason: Pain - Provider Discharge Summary Activity: routine, no sex for 6 weeks, no heavy lifting 4 weeks, no strenuous exercise Diet: routine Instructions: routine Additional instructions: [] Smoking cessation referral if applicable(refer to patient education folder for contact #) [] Refer to [facility]'s [facility] Booklet Call your doctor immediately for: * Fever > 100.5 * Heavy vaginal bleeding ( >1 pad per hour) * Severe persistent headache * Shortness of breath * Reddened, hot, painful area to leg or breast * Drainage or odor from incision. * Keep incision clean and dry at all times and follow doctor's instructions regarding bathing/showering - Follow up plan Follow up: YOLA ALVARENGA MD [Primary Care Provider] - 14 Days (incision check)
[2016-12-08] MEDS: FEOSOL PO SCH (23:30)
[2016-12-09] MEDS: MOTRIN PO PRN ×2 (06:20→13:24)
[2016-12-09] MEDS: FEOSOL PO SCH (09:31)
[2016-12-09] MEDS ORDERED: FLUARIX QUAD 2016-2017(36 MOS+) IM ONE (12:00)
[2016-12-09] MEDS: PERCOCET 5/325 PO PRN (13:23)
[2016-12-09 15:19] VITALS: BP 135/78
== END 2016-12-09 15:25 | disposition home or self-care (01) | DRG 765 ==
LOC: LD 08:26 → OB 12-06 23:59
PROVIDERS: ADMIT Specialist; ATTEND Specialist
PROC: 10D00Z1 Extraction of Products of Conception, Low, Open Approach (ICD-10-PCS; principal; 2016-12-06)
DX: O76 Abnormality in fetal heart rate and rhythm complicating labor and delivery (principal); O41.1230 Chorioamnionitis, third trimester, not applicable or unspecified; O10.92 Unspecified pre-existing hypertension complicating childbirth; Z37.0 Single live birth; Z3A.39 39 weeks gestation of pregnancy; Z83.3 Family history of diabetes mellitus
CPT/HCPCS: 36415; 85007; 85014; 85018; 85025; 85027; 86850; 86900; 86901; 88307; 90471; 90686; 99211; G0463; J0595; J0690; J1885; J2210; J2270; J2405; J2590; J2765; J7120; J7121

== ENCOUNTER 2018-03-06 10:38 | Outpatient (CLI) | payer BC, MEDICAID ==
[2018-03-06 12:44] VITALS: BP 137/77
--- NOTE | 2018-03-06 16:38 | Ultrasound Report ---
FINAL REPORT EXAM: US OB BPP WO NON-STRESS HISTORY: well being TECHNIQUE: Transabdominal sonography of the pelvis. PRIORS: None. FINDINGS: Biophysical profile: tone: 2/2 breathin/2 movement: 2/2 Amniotic fluid: 2/2 Total: 8/8 heart rate 145 beats per minute. MELQUIADES 11.4 cm. IMPRESSION: 1. Biophysical profile as noted above.
--- NOTE | 2018-03-06 16:53 | Ultrasound Report ---
FINAL REPORT EXAM: US OB LIMITED HISTORY: well being TECHNIQUE: Transabdominal sonography of the pelvis. PRIORS: None. FINDINGS: Examination performed to determine position, heart rate and amniotic fluid index only. There is a single, live intrauterine in breech presentation. heart motion is detected and heart rate is 145-154 beats per minute. Biometric data, obtained and estimated gestational age and an ultrasound estimated date of delivery not obtained. survey not performed. Amniotic fluid index is 11.4 cm. Remainder of the uterus and adnexa grossly unremarkable. IMPRESSION: 1. Single, live intrauterine .
== END 2018-03-06 13:38 | disposition home or self-care (01) ==
LOC: TRG 10:38
PROVIDERS: ATTEND Obstetrics & Gynecology
DX: O32.1XX0 Maternal care for breech presentation, not applicable or unspecified (principal); Z3A.33 33 weeks gestation of pregnancy
CPT/HCPCS: 59025; 76815; 76819

== ENCOUNTER 2018-04-21 05:06 | Inpatient (IN) | payer BC, MEDICAID ==
[2018-04-21] MEDS ORDERED: BICITRA PO ONE (05:36)
[2018-04-21] MEDS ORDERED: REGLAN IV ONE (05:36)
[2018-04-21] MEDS ORDERED: PEPCID IV ONE (05:36)
[2018-04-21] MEDS ORDERED: LACTATED RINGERS 1,000 ML ONE (05:54)
[2018-04-21] MEDS ORDERED: ANCEF/STERILE WATER 2 GM/20 ML 2 GM/20 ML SYRINGE IV NR ×2 (06:00→09:30)
[2018-04-21 06:40] LABS: Basophils % (Auto) 0.4 % (0.0-1.8); Eosinophils # (Auto) 0.1 K/mm3 (0.0-0.4); Eosinophils % (Auto) 0.8 % (0.0-4.3); Hematocrit 33.3 % (30.3-42.9); Hemoglobin 10.9 gm/dl (10.1-14.3); Lymphocytes % (Auto) 18.8 % (13.4-35.0); Mean Corpuscular HGB Conc 33 % (30-34); Mean Corpuscular Hemoglobin 25 pg (28-32); Mean Corpuscular Volume 76 fl (79-97); Monocytes # (Auto) 0.8 K/mm3 (0.0-0.8); Monocytes % (Auto) 7.3 % (0.0-7.3); Platelet Count 255 K/mm3 (140-440); Red Blood Count 4.36 M/mm3 (3.65-5.03); Red Cell Distribution Width 16.3 % (13.2-15.2)
[2018-04-21] MEDS: LACTATED RINGERS 1,000 ML IV SCH ×2 (07:23→07:50)
[2018-04-21] MEDS ORDERED: MORPHINE ONE (07:56)
--- NOTE | 2018-04-21 08:03 | History and Physical Report ---
History of Present Illness Date of examination: 04/21/18 Date of admission: 04/21/18 05:06 Chief complaint: 39 weeks gestation not in labor for elective repeat C/section. History of present illness: Patient is a 22 year old , LMP 07/20/17, EDC 04/26/18 at 39 weeks and 2 days gestation who is admitted for elective repeat C/section. She denies any contractions, fluid leakage or bleeding per vagina. She reports good movement. She has gestational HTN and has been on aldomet. Her BP has been stable. Past History Past Medical History: hypertension, other (anemia) Past Surgical History: section Family/Genetic History: none Social history: no significant social history - Obstetrical History Expected Date of Delivery: 04/26/18 Actual Gestation: 39 Week(s) 2 Day(s) : 2 Para: 1 Number of Living Children: 1 #1 Infant Gender: Male year: 2,017 Birthweight: 3.799 kg Method of Delivery: (for distress) Gestational age at delivery: 40 Complications: none Medications and Allergies Allergies Allergy/AdvReac Type Severity Reaction Status Date / Time No Known Allergies Allergy Verified 12/05/16 09:30 Home Medications Medication Instructions Recorded Confirmed Last Taken Type Methyldopa [Aldomet] 250 mg PO BID 04/21/18 04/21/18 04/20/18 09:00 History 1 Active Meds: Active Medications Lactated Ringer's (Lactated Ringers) 1,000 mls @ 2,250 mls/hr IV PREOP DANA Stop: 04/22/18 06:27 Last Admin: 04/21/18 07:23 Dose: 2,250 mls/hr Oxytocin/Sodium Chloride (Pitocin/Ns 20 Unit/1000ml Drip) 20 units in 1,000 mls @ 0 mls/hr IV TITR DANA - Vital Signs Vital signs: Vital Signs Pulse BP 104 H 120/70 04/21/18 05:40 04/21/18 05:40 Temp Pulse Resp BP Pulse Ox 98.6 F 96 H 18 127/78 04/21/18 07:10 04/21/18 07:10 04/21/18 07:10 04/21/18 07:10 - Physical Exam Cardiovascular: Normal S1, Normal S2 Lungs: Positive: Clear to auscultation Vulva: both: normal Adnexa: both: normal Deep Tendon Reflex Grade: Normal +2 - Obstetrical FHR: category 1 Uterine Contraction Monitor Mode: External Cervical Dilatation: 0 Cervical Effacement Percentage: 50 station: -2 Uterine Contraction Pattern: Absent Results Result Diagrams: 04/21/18 06:00 Abnormal lab results 04/21/18 Range/Units 06:00 MCV 76 L (79-97) fl MCH 25 L (28-32) pg RDW 16.3 H (13.2-15.2) % Seg Neutrophils % 72.7 H (40.0-70.0) % All other labs normal. Assessment and Plan - Patient Problems (1) 39 weeks gestation of Current Visit: Yes Status: Acute (2) Previous section Current Visit: Yes Status: Acute Plan to address problem: Admit to labor floor. Routine admitting labs. IV hydration. Patient is for repeat C/section. Risks and benefits of the procedure were discussed in detail with her which included but not limited to the risks of infectyion, hemorrhage requiring blood transfusion, injury to the bowel, bladder and blood vessels. She expressed understanding, her questions were answered, she gave her informed consent. Keep NPO Anesthesia notified. (3) Declines (vaginal after ) trial Current Visit: Yes Status: Acute (4) Gestational HTN Current Visit: Yes Status: Acute Plan to address problem: She is on aldomet. BP stable. (5) Anemia Current Visit: Yes Status: Acute Qualifiers: Anemia type: iron deficiency
[2018-04-21] MEDS ORDERED: NACL 0.9% IR ONE (08:32)
[2018-04-21] MEDS ORDERED: WATER FOR IRRIG STERILE IR ONE (08:33)
[2018-04-21] MEDS ORDERED: ANCEF/STERILE WATER 2 GM/20 ML IV ONE (08:45)
[2018-04-21] MEDS ORDERED: NEO SYNEPHRINE/NS Syringe(OR USE) IV ONE (08:47)
[2018-04-21] MEDS: PITOCin/NS 20 UNIT/1000ML DRIP 20 UNITS/1,000 ML BAG IV SCH ×2 (09:05→11:00)
[2018-04-21] MEDS ORDERED: HEMABATE IM ONE ×2 (09:27→09:31)
--- NOTE | 2018-04-21 10:07 | Anesthesia Consultation ---
Anesthesia Consult and Med Hx Date of service: 04/21/18 - Airway Anesthetic Teeth Evaluation: Good ROM Head & Neck: Adequate Mental/Hyoid Distance: Adequate Mallampati Class: Class II Intubation Access Assessment: Good - Pulmonary Exam CTA: Yes - Cardiac Exam Cardiac Exam: RRR - Pre-Operative Health Status ASA Pre-Surgery Classification: ASA2 Proposed Anesthetic Plan: General - Pulmonary Hx Asthma: No COPD: No Hx Pneumonia: No - Cardiovascular System Hx Hypertension: Yes (Gestational HTN) - Central Nervous System Hx Seizures: No Hx Psychiatric Problems: No - Endocrine Hx Renal Disease: No Hx End Stage Renal Disease: No Hx Hypothyroidism: No Hx Hyperthyroidism: No - Hematic Hx Anemia: No Hx Sickle Cell Disease: No - Other Systems Hx Alcohol Use: No - Additional Comments Anesthesia Medical History Comments: NAC for previous c/s. Healthy.
--- NOTE | 2018-04-21 10:55 | Operative Report ---
Operative Report Operative Report: Preoperative diagnosis: 1. SIUP at 39 weeks gestation not in labor. 2. Previous Cesarian section. 3. Declined . Postoperative diagnosis: same as preoperative diagnosis. Procedure: Repeat low transverse C/section. Surgeon: Dr. Mazariegos Isotope Technician: none Anesthesia: spinal IVF: 1.5 liters of RL. EBL: 700 cc Urine: 150 cc clear Complications: none Procedure details: Risks, benefits and alternatives of the procedure were discussed in detail with the patient which included but not limited to the risk of infection, hemorrhage requiring blood transfusion, injury to the bowel or bladder and blood vessels. The patient expressed understanding, her questions were answered, and she gave informed consent. The patient was taken to the operating room with an IV fluid infusing Ringer's lactate. In the operating room, she was placed in a sitting position and given spinal anesthesia. Then, she was placed in the dorsal supine position with a leftward tilt. Venodyne boots and Alexis catheter were placed. The abdomen was washed and she was prepared and draped in usual sterile fashion. After confirming adequate spinal anesthesia, a Pfannenstiel skin incision was made in the lower abdomen at the level of the previous scar using the scalpel. This incision was carried down to the underlying fascia using the Bovie. The fascia was opened bilaterally in curvilinear fashion using the Bovie. 2 straight Kocker clamps were used to grasp the upper edge of the fascia from which the underlying rectus abdominis muscle was dissected off using the Bovie. A similar procedure was done with the lower edge of the fascia to dissect the underlying rectus abdominis muscle. The muscle was bluntly from the midline by pulling. The parietal peritoneum was grasped with 2 hemostat clamps and entered sharply using Metzenbaum scissors. A quick survey of the anatomy revealed a gravid uterus, normal fallopian tubes and ovaries bilaterally. A bladder flap was created. Allan'O retractor was placed at the incision for proper visualization. A low transverse incision was made in the lower uterine segment using the scalpel and extended bilaterally in a curvilinear fashion using bandage scissors. The amniotic sac was ruptured and there was copious amount of clear amniotic fluids. The was found in an MARC position, the head was delivered atraumatically followed by the delivery of the shoulders and rest of the body at 9;02 AM. The cord was clamped 2 and cut and the was handed off to the waiting senior accounting manager. The infant was a female, Apgars were 9 at 1 minutes and 9 at 5 minutes, weight was 7 lbs. 14 oz. Cord blood was collected. The placenta was delivered manually and it was complete with a three-vessel cord. The uterine incision was repaired in a running locked fashion using 0 Vicryl sutures. A second layer of imbrication was placed. The gutters were cleaned of clot and debris using lap sponges. After confirming adequate hemostasis, the instruments were removed from the abdominal cavity. The fascia was closed in a running fashion using 0 Vicryl sutures. The subcutaneous adipose tissue was reapproximated using 2-0 chromic sutures. The skin was closed in a subcutaneous fashion using 4-0 Vicryl sutures on a Beka needle. Sterile dressing was placed. The counts of laps, needles, sponges and instruments were correct 2. The patient tolerated the procedure well. She was taken to the recovery room in a stable condition.
[2018-04-21] MEDS ORDERED: TORADOL IV PRN ×2 (11:00)
[2018-04-21] MEDS ORDERED: TUCKS PAD TP PRN (11:00)
[2018-04-21] MEDS ORDERED: LANSINOH TP PRN (11:00)
[2018-04-21] MEDS ORDERED: NARCAN 0.4 MG/1 ML IV PRN (11:00)
[2018-04-21] MEDS ORDERED: PITOCin/NS 20 UNIT/1000ML DRIP 20 UNITS/1,000 ML BAG IV SCH (11:00)
[2018-04-21] MEDS ORDERED: SODIUM CHLORIDE FLUSH SYRINGE 10 ML IV PRN (11:00)
[2018-04-21] MEDS ORDERED: MORPHINE IV PRN (11:00)
[2018-04-21] MEDS ORDERED: XYLOCAINE MPF 2% ONE (12:45)
[2018-04-21] MEDS ORDERED: LACTATED RINGERS 1,000 ML IV SCH (19:00)
[2018-04-21 22:22] LABS: Hematocrit 31.8 % (30.3-42.9); Hemoglobin 10.2 gm/dl (10.1-14.3)
[2018-04-21] MEDS: PERCOCET 5/325 PO PRN (23:06)
[2018-04-22] MEDS ORDERED: BENADRYL PO PRN (00:53)
--- NOTE | 2018-04-22 09:52 | Progress Note ---
Assessment and Plan A: POD#1 s/p Repeat section Pain well controlled Stable P: Routine PP/PO care Encouraged ambulation in room Anticipate discharge home 24-48 hours Subjective - Subjective Date of service: 04/22/18 Principal diagnosis: s/p Repeat c/s Interval history: See H&P and operative report Patient reports: appetite normal, voiding normally, pain well controlled, flatus , ambulating normally, no bowel movement : doing well, bottle feeding Objective - Vital Signs Latest vital signs: Vital Signs Temp Pulse Resp BP BP Pulse Ox 04/22/18 09:14 98.5 F 89 20 106/70 04/22/18 04:13 98.9 F 97 H 18 109/70 97 04/22/18 00:16 98.6 F 109 H 18 101/59 95 04/21/18 23:06 18 04/21/18 20:35 99.0 F 112 H 18 119/77 97 04/21/18 16:13 98.6 F 105 H 20 115/75 115/75 95 04/21/18 11:10 98.9 F 99 H 20 110/60 04/21/18 11:00 98.0 F 04/21/18 10:58 99 H 11 L 102/61 04/21/18 10:52 101 H 21 99/54 96 04/21/18 10:50 93 H 15 99/54 96 04/21/18 10:46 97 H 24 93/52 96 04/21/18 10:45 97.8 F 04/21/18 10:40 98 H 21 101/50 98 04/21/18 10:35 97.8 F 95 H 15 101/50 97 04/21/18 10:30 94 H 22 105/62 98 04/21/18 10:25 92 H 24 98/59 99 04/21/18 10:20 94 H 17 97/57 98 04/21/18 10:15 92 H 19 97/57 98 04/21/18 10:10 88 22 99/55 97 04/21/18 10:05 94 H 23 89/51 98 04/21/18 10:00 100 H 18 97/45 98 04/21/18 09:58 97.7 F 93 H 12 98 Intake and Output 04/21/18 04/22/18 04/22/18 23:59 07:59 15:59 Intake Total 480 400 300 Output Total 850 600 Balance -370 -200 300 Intake: Oral 480 400 300 Output: Urine 850 600 Indwelling Catheter 850 300 Void 300 Other: Total, Intake Amount 480 400 300 Total, Output Amount 300 600 # Bowel Movements 0 - Exam Cardiovascular: Present: Regular rate, Normal S1, Normal S2 Lungs: Present: Clear to auscultation, Normal air movement Abdomen: Present: normal appearance, soft, tenderness (expected ), normal bowel sounds. Absent: distention Vulva: both: normal Uterus: Present: firm, fundal height at umbilicus Extremities: Present: normal Deep Tendon Reflex Grade: Normal +2 Incision: Present: normal, dry, intact, dressed (pressure dressing intact, no drainage noted)
[2018-04-22] MEDS: PERCOCET 5/325 PO PRN ×2 (11:50→18:37)
[2018-04-22] MEDS: PRENATAL VITAMIN PO SCH (11:50)
[2018-04-22] MEDS: FEOSOL PO SCH (11:50)
[2018-04-22] MEDS: MOTRIN PO PRN (18:36)
[2018-04-23] MEDS: MOTRIN PO PRN ×2 (01:43→12:40)
[2018-04-23] MEDS: PERCOCET 5/325 PO PRN ×2 (01:43→12:40)
--- NOTE | 2018-04-23 11:08 | Progress Note ---
Assessment and Plan A: POD #2 Stable P: Follow Routine PostOp Orders D/C home today per patient request RTO in One Week Subjective - Subjective Date of service: 04/23/18 Principal diagnosis: s/p Repeat c/s Patient reports: appetite normal, voiding normally, pain well controlled, flatus , ambulating normally [place]: doing well, bottle feeding Objective - Vital Signs Latest vital signs: Vital Signs Temp Pulse Resp BP 04/23/18 03:01 98 F 101 H 20 120/75 04/22/18 16:15 98 F 89 20 110/63 Intake and Output 04/22/18 04/23/18 04/23/18 22:59 06:59 14:59 Intake Total 240 240 Balance 240 240 Intake: Oral 240 Intake, Free Water 240 Other: Total, Intake Amount 240 # Voids Void 1 - Exam Breasts: Present: normal Cardiovascular: Present: Regular rate Lungs: Present: Clear to auscultation, Normal air movement Abdomen: Present: normal appearance, soft, normal bowel sounds Uterus: Present: normal, firm, fundal height below umbilicus Extremities: Present: normal Incision: Present: normal, dry, intact
--- NOTE | 2018-04-23 11:09 | Discharge Summary ---
Providers - Providers Date of Admission: 04/21/18 05:06 Date of discharge: 04/23/18 Attending physician: BELIA DICKERSON MD Primary care physician: BELIA DICKERSON MD Hospitalization Reason for admission: section Delivery: Procedure: repeat low transverse Episiotomy: none Laceration: none Incision: normal, dry, intact Other procedures: none complications: none Discharge diagnosis: IUP at term delivered [place] baby: female Condition at discharge: Good Disposition: DC-01 TO HOME OR SELFCARE Plan - Discharge Medications Prescriptions: Ibuprofen [Motrin] 800 mg PO Q8HR PRN #20 tablet PRN Reason: Pain, Moderate (4-6) oxyCODONE /ACETAMINOPHEN [Percocet 5/325] 1 tab PO Q4HR #14 tab - Provider Discharge Summary Activity: routine, no sex for 6 weeks, no heavy lifting 4 weeks, no strenuous exercise Diet: routine Instructions: routine Additional instructions: [] Smoking cessation referral if applicable(refer to patient education folder for contact #) [] Refer to [facility] Booklet Call your doctor immediately for: * Fever > 100.5 * Heavy vaginal bleeding ( >1 pad per hour) * Severe persistent headache * Shortness of breath * Reddened, hot, painful area to leg or breast * Drainage or odor from incision. * Keep incision clean and dry at all times and follow doctor's instructions regarding bathing/showering - Follow up plan Follow up: BELIA DICKERSON MD [Primary Care Provider] - 7 Days
[2018-04-23] MEDS: PRENATAL VITAMIN PO SCH (11:45)
[2018-04-23] MEDS: FEOSOL PO SCH (11:45)
[2018-04-23 18:50] VITALS: BP 115/74
== END 2018-04-23 13:15 | disposition home or self-care (01) | DRG 766 ==
LOC: APU 05:06 → OB 11:33
PROVIDERS: ADMIT Obstetrics & Gynecology; ATTEND Obstetrics & Gynecology
PROC: 10D00Z1 Extraction of Products of Conception, Low, Open Approach (ICD-10-PCS; principal; 2018-04-21)
DX: O34.211 Maternal care for low transverse scar from previous cesarean delivery (principal); O13.4 Gestational [pregnancy-induced] hypertension without significant proteinuria, complicating childbirth; Z37.0 Single live birth; Z3A.39 39 weeks gestation of pregnancy; O99.02 Anemia complicating childbirth; D64.9 Anemia, unspecified
CPT/HCPCS: 36415; 59025; 85014; 85018; 85025; 86592; 86850; 86900; 86901; 96360; 96361; 96374; J0690; J2270; J2370; J2590; J2765; J7120